=== PATIENT | female | born 2000 | race Caucasian/White ===

== ENCOUNTER 2023-05-29 19:40 | Emergency (ER) | payer OTHER ==
[2023-05-30] MEDS: Take Home: Cyclobenzaprine 10 MG Tab, 4 Tab Pack PO ONE
== END 2023-05-30 00:03 | disposition home or self-care (01) ==
LOC: DL.ED 19:40
DX: S16.1XXA Strain of muscle, fascia and tendon at neck level, initial encounter (principal); Z88.8 Allergy status to other drugs, medicaments and biological substances; W22.8XXA Striking against or struck by other objects, initial encounter
CPT/HCPCS: 99283; A9270